=== PATIENT | female | born 1990 | race Caucasian/White ===

== ENCOUNTER 2021-03-02 09:49 | Observation (INO) ==
[2021-03-02 10:53] LABS: Hemoglobin 13.5 g/dL (11.5-15.4); Mean Corpuscular Hemoglobin 25.9 pg (28.0-33.3); Red Cell Distribution Width 14.2 % (11.5-14.5)
[2021-03-02 10:55] LABS: Basophils # 0.1 K/mcL (0.0-0.2); Basophils % 0.7 %; Eosinophils # 0.1 K/mcL (0.0-0.6); Eosinophils % 0.9 %; Immature Granulocytes % 1.6 % (0-4); Immature Platelets 21.5 % (1.1-6.1); Lymphocytes # 1.7 K/mcL (0.6-4.6); Lymphocytes % 16.4 %; Mean Corpuscular HGB Conc 32.9 g/dL (31.6-35.5); Mean Corpuscular Volume 78.7 fL (83.0-100.0); Monocytes % 9.6 %; Neutrophils # 7.3 K/mcL (1.6-8.9); Platelet Count 126 K/mcL (140-400); Red Blood Count 5.21 M/mcL (3.82-4.97); Segmented Neutrophils % 70.8 %; White Blood Count 10.3 K/mcL (4.3-11.1)
[2021-03-02 11:02] LABS: Protein/Creatinine Ratio,Urine 0.36 mg/mg (0.00-0.20)
[2021-03-02 11:12] LABS: Alanine Aminotransferase 16 Units/L (7-52); Aspartate Amino Transferase 18 Units/L (13-39); BUN/Creatinine Ratio 11 (6-26); Blood Urea Nitrogen 4 mg/dL (6-20); Lactate Dehydrogenase 207 Units/L (140-271); eGFR For African Americans > 60 (> 60); eGFR For Non-African Americans > 60 (> 60)
[2021-03-02 11:47] LABS: Bacteria,Urine Few per hpf (None-Few); Bilirubin,Urine Negative (Negative); Blood,Urine Negative (Negative); Clarity,Urine Clear (Clear); Color,Urine Colorless (Yellow); Glucose,Urine (UA) Normal (Normal); Ketones,Urine Negative (Negative); Leukocyte Esterase,Urine Trace (Negative); Nitrite,Urine Negative (Negative); PH,Urine 7.5 pH Units (5.0-8.0); Protein,Urine Negative (Neg-Trace); RBC,Urine 0-3 per hpf (0-3); Specific Gravity,Urine < 1.005 (1.010-1.025); Squamous Epithelial Cell,Urine Few per hpf (None-Few); Transitional Epi Cells,Urine Few per hpf (None-Few); Urobilinogen,Urine Normal (Normal); WBC,Urine 0-3 per hpf (0-3)
[2021-03-02] MEDS ORDERED: Nitrofurantoin (BID) 100 MG CAPSULE PO SCH (13:45)
== END 2021-03-02 14:00 | disposition home or self-care (01) ==
LOC: 1NENULAB
PROVIDERS: ADMIT Student in an Organized Health Care Education/Training Program; ATTEND Student in an Organized Health Care Education/Training Program

== ENCOUNTER 2021-03-05 07:39 | Inpatient (IN) ==
[2021-03-05] MEDS ORDERED: Ringers Solution, Lactated 1,000 ML IVC ONE (07:44)
[2021-03-05] MEDS ORDERED: Famotidine 20 MG/2 ML VIAL IVP ONE (07:44)
[2021-03-05] MEDS ORDERED: Metoclopramide 10 MG/2 ML VIAL IVP ONE (07:44)
[2021-03-05] MEDS ORDERED: CeFAZolin 2,000 MG/120 ML BAG IVPB ONE (07:44)
[2021-03-05] MEDS ORDERED: Ringers Solution, Lactated 1,000 ML IVC SCH (07:45)
[2021-03-05 08:43] LABS: Influenza A PCR Negative (Negative); Influenza B PCR Negative (Negative); Resp. Syncytial Virus PCR Negative (Negative)
[2021-03-05 08:45] LABS: SARS-CoV-2 by PCR (In House) Negative (Negative)
[2021-03-05 09:02] LABS: Basophils # 0.1 K/mcL (0.0-0.2); Basophils % 0.8 %; Eosinophils # 0.1 K/mcL (0.0-0.6); Eosinophils % 0.7 %; Hematocrit 42.9 % (35.3-44.9); Hemoglobin 13.8 g/dL (11.5-15.4); Immature Granulocytes % 1.3 % (0-4); Lymphocytes # 1.5 K/mcL (0.6-4.6); Lymphocytes % 16.5 %; Mean Corpuscular HGB Conc 32.2 g/dL (31.6-35.5); Mean Corpuscular Hemoglobin 25.5 pg (28.0-33.3); Mean Corpuscular Volume 79.2 fL (83.0-100.0); Mean Platelet Volume 13.7 fL (9.4-12.4); Monocytes # 0.7 K/mcL (0.0-1.3); Monocytes % 7.9 %; Neutrophils # 6.6 K/mcL (1.6-8.9); Platelet Count 131 K/mcL (140-400); Red Blood Count 5.42 M/mcL (3.82-4.97); Red Cell Distribution Width 14.3 % (11.5-14.5); Segmented Neutrophils % 72.8 %; White Blood Count 9.1 K/mcL (4.3-11.1)
[2021-03-05] MEDS ORDERED: *HR* Morphine Sulfate/PF 10 MG/10 ML AMPUL ONE (09:06)
[2021-03-05] MEDS ORDERED: *HR* FentaNYL (PF) 100 MCG/2 ML VIAL ONE (09:06)
[2021-03-05] MEDS ORDERED: EPHEDrine 50 MG/ML VIAL ONE (09:06)
[2021-03-05] MEDS ORDERED: Ondansetron 4 MG/2 ML VIAL ONE (09:06)
[2021-03-05] MEDS ORDERED: *HR* Phenylephrine 10 MG/ML VIAL ONE (09:06)
[2021-03-05] MEDS ORDERED: Ketorolac 30 MG/ML VIAL ONE (09:07)
[2021-03-05] MEDS ORDERED: Acetaminophen IV 1,000 MG/100 ML BAG IVPB ONE (09:11)
[2021-03-05 09:13] LABS: Alanine Aminotransferase 17 Units/L (7-52); Aspartate Amino Transferase 21 Units/L (13-39); BUN/Creatinine Ratio 9 (6-26); Blood Urea Nitrogen 4 mg/dL (6-20); Lactate Dehydrogenase 233 Units/L (140-271); Uric Acid 5.2 mg/dL (2.3-7.6); eGFR For African Americans > 60 (> 60); eGFR For Non-African Americans > 60 (> 60)
[2021-03-05] MEDS ORDERED: *HR* OxyCODONE Immed Rel 5 MG TABLET PO PRN ×2 (10:17→13:25)
[2021-03-05] MEDS ORDERED: Ondansetron 4 MG/2 ML VIAL IVP PRN ×2 (10:17→13:25)
[2021-03-05] MEDS ORDERED: *HR* HYDROmorphone PF 0.5 MG/0.5 ML SYRINGE IVP PRN (10:17)
[2021-03-05] MEDS ORDERED: Promethazine 6.25 MG in Water for inj. (sterile) 20 ML IVPB PRN (12:50)
[2021-03-05] MEDS ORDERED: Simethicone 80 MG TAB.CHEW PO PRN (13:25)
[2021-03-05] MEDS ORDERED: Metoclopramide 10 MG/2 ML VIAL IVP PRN (13:25)
[2021-03-05] MEDS ORDERED: Oxytocin 20 units/ LR 1000 mL 20 UNIT/1,000 ML BAG IVC SCH (13:25)
[2021-03-05 14:36] LABS: Creatinine,Urine 13 mg/dL
[2021-03-05 15:28] LABS: Amphetamine Screen,Urine Negative ng/mL (Cutoff=1000); Barbiturate Screen,Urine Negative ng/mL (Cutoff=200); Benzodiazepines Screen,Urine Negative ng/mL (Cutoff=200); Cannabinoid Screen,Urine Negative ng/mL (Cutoff = 50); Cocaine Screen,Urine Negative ng/mL (Cutoff= 300); Opiate Screen,Urine Negative ng/mL (Cutoff=300); Phencyclidine Screen,Urine Negative ng/mL (Cutoff=25)
[2021-03-05] MEDS: Ibuprofen 600 MG TABLET PO SCH (23:06)
[2021-03-05] MEDS: Acetaminophen 325 MG TABLET PO SCH (23:06)
[2021-03-05] MEDS: Nitrofurantoin (BID) 100 MG CAPSULE PO SCH (23:10)
[2021-03-06] MEDS: Acetaminophen 325 MG TABLET PO SCH ×3 (05:25→20:55)
[2021-03-06] MEDS: Ibuprofen 600 MG TABLET PO SCH ×3 (05:25→20:54)
[2021-03-06] MEDS: Prenatal Vit/FA 1 EACH TABLET PO SCH (07:32)
[2021-03-06] MEDS: Nitrofurantoin (BID) 100 MG CAPSULE PO SCH ×2 (07:32→20:54)
[2021-03-06 22:19] LABS: Hematocrit 35.2 % (35.3-44.9); Mean Corpuscular HGB Conc 32.7 g/dL (31.6-35.5); Mean Corpuscular Hemoglobin 26.3 pg (28.0-33.3)
[2021-03-06 22:20] LABS: Basophils # 0.1 K/mcL (0.0-0.2); Basophils % 0.5 %; Eosinophils # 0.1 K/mcL (0.0-0.6); Hemoglobin 11.5 g/dL (11.5-15.4); Immature Granulocytes % 0.9 % (0-4); Immature Platelets 15.5 % (1.1-6.1); Lymphocytes # 2.5 K/mcL (0.6-4.6); Lymphocytes % 18.1 %; Mean Corpuscular Volume 80.5 fL (83.0-100.0); Mean Platelet Volume 12.7 fL (9.4-12.4); Monocytes # 1.2 K/mcL (0.0-1.3); Monocytes % 8.7 %; Neutrophils # 9.7 K/mcL (1.6-8.9); Platelet Count 137 K/mcL (140-400); Red Blood Count 4.37 M/mcL (3.82-4.97); Red Cell Distribution Width 14.5 % (11.5-14.5); Segmented Neutrophils % 70.8 %; White Blood Count 13.7 K/mcL (4.3-11.1)
[2021-03-06 22:42] LABS: Reactive Lymphocytes Present (Not Present)
[2021-03-07] MEDS: Acetaminophen 325 MG TABLET PO SCH (05:20)
[2021-03-07] MEDS: Ibuprofen 600 MG TABLET PO SCH (05:20)
[2021-03-07] MEDS: Nitrofurantoin (BID) 100 MG CAPSULE PO SCH (08:02)
[2021-03-07] MEDS: Prenatal Vit/FA 1 EACH TABLET PO SCH (08:02)
[2021-03-07 08:58] VITALS: BP 111/64; PULSE 92; TEMP 98.3; O2SAT 96
== END 2021-03-07 12:27 | disposition home or self-care (01) | DRG 540 ==
LOC: 1NENULAB 07:39 → EDSTATUS 10:00 → 1NENUOBS 13:25
PROVIDERS: ADMIT Obstetrics & Gynecology; ATTEND Obstetrics & Gynecology